=== PATIENT | male | born 1950 | race Caucasian/White ===

== ENCOUNTER 2024-05-23 10:53 | Day surgery (SDC) | payer MEDICARE ==
[~2024-05-23] VITALS: Ht 162.6 cm; Wt 69.3 kg
[~2024-05-23 10:53] MED LIST: ASPI81TA26 PO; LISI20TA33 PO; OMEG10002 PO; SIMV20TA22 PO; SYNT25TA PO
[2024-05-23] MEDS ORDERED: LR 1,000 ML IV SCH (11:45)
[2024-05-23] MEDS ORDERED: ROCURONIUM BROMIDE 50MG/5ML VIAL As Ordered ONE (11:53)
[2024-05-23] MEDS ORDERED: ONDANSETRON 4MG 2ML VIAL As Ordered ONE (11:53)
[2024-05-23] MEDS ORDERED: ACETAMINOPHEN 1000MG/100ML IV BAG As Ordered ONE (11:53)
[2024-05-23] MEDS ORDERED: LIDOCAINE 2% 100MG/5ML SDV (FOR ANES.) As Ordered ONE (11:53)
[2024-05-23] MEDS ORDERED: fentaNYL 100 MCG/2 ML INJECTION As Ordered ONE (11:53)
[2024-05-23] MEDS ORDERED: propofoL 200 MG/20 ML VIAL As Ordered ONE (11:53)
[2024-05-23] MEDS ORDERED: SUGAMMADEX SODIUM 500 MG/5 ML VIAL (BRIDION) As Ordered ONE (11:54)
[2024-05-23] MEDS ORDERED: LIDOCAINE 1% SDV 30ML VIAL As Ordered ONE (12:29)
[2024-05-23] MEDS ORDERED: PERCOCET 5MG/325MG TAB PO PRN (12:50)
[2024-05-23] MEDS ORDERED: ACETAMINOPHEN 325 MG TAB PO PRN (12:50)
[2024-05-23] MEDS: ceFAZolin SOD 2 GM in IV 1 EA IV ONE (13:10)
[2024-05-23] MEDS: HEPARIN SOD (PORCINE) 5000UNITS/ML 1ML VIAL/SYRINGE SQ ONE (13:15)
[2024-05-23] MEDS ORDERED: hydrALAZINE 20MG/ML 1ML VIAL As Ordered ONE (15:59)
[2024-05-23] MEDS: ceFAZolin 1GM VIAL As Ordered ONE (17:10)
[2024-05-23] MEDS ORDERED: HYDROmorphone HCL 2MG/ML 1ML VIAL As Ordered ONE (17:32)
[2024-05-23] MEDS ORDERED: KETOROLAC 60MG 2ML VIAL As Ordered ONE (19:23)
[2024-05-23] MEDS ORDERED: PHENYLephrine 500MCG 5ML (100MCG/ML) SYRINGE As Ordered ONE (19:28)
[2024-05-23] MEDS ORDERED: MORPHINE 2 MG/ML 1ML VIAL IV PRN (19:30)
[2024-05-23] MEDS ORDERED: fentaNYL 100 MCG/2 ML INJECTION IV PRN (19:30)
[2024-05-23] MEDS ORDERED: oxyCODONE 5MG TAB PO PRN (19:30)
[2024-05-23] MEDS ORDERED: ONDANSETRON 4MG 2ML VIAL IV PRN (19:30)
[2024-05-23 20:07] LABS: HEMOGLOBIN 12.6 g/dl (13.5-17.5); MEAN CORPUSCULAR HEMOGLOBIN 29.7 pg (27.0-33.0); MEAN CORPUSCULAR HGB CONC 33.2 g/dl (32.0-36.5); MEAN CORPUSCULAR VOLUME 89.6 fl (80.0-96.0); PLATELET COUNT, AUTOMATED 264 10^3/uL (150-450); RED BLOOD COUNT 4.24 10^6/uL (4.30-6.10); WHITE BLOOD COUNT 16.7 10^3/uL (4.0-10.0)
[2024-05-23 20:32] LABS: CALCIUM LEVEL 8.9 MG/DL (8.3-10.6); CREATININE FOR GFR 1.4 MG/DL (0.70-1.30); GLOMERULAR FILTRATION RATE 52.5 (>42); POTASSIUM SERUM 5.6 MMOL/L (3.5-5.1)
[2024-05-23] MEDS: ceFAZolin SOD 1 GM in DEXTROSE 5% (D5W) ADV/MINI-BAG 50 ML IV SCH (21:40)
[2024-05-23 21:45] VITALS: TEMP 97.7; O2SAT 97
[2024-05-23] MEDS: SIMVASTATIN 20 MG TAB PO SCH (22:25)
[2024-05-23] MEDS: DOCUSATE SODIUM 100MG CAPSULE PO SCH (22:25)
[2024-05-23] MEDS: HEPARIN SOD (PORCINE) 5000UNITS/ML 1ML VIAL/SYRINGE SC SCH (22:25)
[2024-05-23] MEDS: NS 500 ML IV SCH (22:26)
[2024-05-23 22:30] VITALS: BP 100/61; TEMP 98.1; O2SAT 98
[2024-05-23 23:00] VITALS: BP 111/73; TEMP 97.9; O2SAT 96
[2024-05-24] VITALS (9 sets, daily range): BP systolic 97–111; BP diastolic 58–63; TEMP 97.9; O2SAT 94–98
[2024-05-24 05:26] LABS: HEMATOCRIT 34.4 % (42.0-52.0); HEMOGLOBIN 11.4 g/dl (13.5-17.5); MEAN CORPUSCULAR HEMOGLOBIN 29.8 pg (27.0-33.0); MEAN CORPUSCULAR HGB CONC 33.1 g/dl (32.0-36.5); MEAN CORPUSCULAR VOLUME 89.8 fl (80.0-96.0); PLATELET COUNT, AUTOMATED 218 10^3/uL (150-450); RED BLOOD COUNT 3.83 10^6/uL (4.30-6.10); WHITE BLOOD COUNT 14.6 10^3/uL (4.0-10.0)
[2024-05-24] MEDS: LEVOTHYROXINE 25MCG TABLET (0.025MG) PO SCH (05:35)
[2024-05-24] MEDS: PERCOCET 5MG/325MG TAB PO PRN (05:43)
[2024-05-24 05:52] LABS: CALCIUM LEVEL 8.3 MG/DL (8.3-10.6); CREATININE FOR GFR 1.36 MG/DL (0.70-1.30); GLOMERULAR FILTRATION RATE 54.2 (>42); POTASSIUM SERUM 5.8 MMOL/L (3.5-5.1)
[2024-05-24] MEDS: FUROSEMIDE 20MG/2ML VIAL IV ONE (06:41)
[2024-05-24] MEDS ORDERED: CIPR-249 PO (09:35)
[2024-05-24] MEDS ORDERED: COLA100C5 PO (09:35)
[2024-05-24] MEDS ORDERED: PERCOCET PO (09:35)
[2024-05-24] MEDS: ONDANSETRON 4MG 2ML VIAL IV PRN (13:26)
[2024-05-24 13:38] LABS: CALCIUM LEVEL 8.7 MG/DL (8.3-10.6); CREATININE FOR GFR 1.33 MG/DL (0.70-1.30); GLOMERULAR FILTRATION RATE 55.7 (>42); POTASSIUM SERUM 4.9 MMOL/L (3.5-5.1)
== END 2024-05-24 16:26 | disposition home or self-care (01) ==
LOC: M SDC 10:53 → M MSPAV 20:57 → M SDC 05-24 16:26
PROVIDERS: ATTEND Urology
DX: C61 Malignant neoplasm of prostate (principal); K66.0 Peritoneal adhesions (postprocedural) (postinfection); I10 Essential (primary) hypertension; E78.5 Hyperlipidemia, unspecified; E03.9 Hypothyroidism, unspecified; Z79.82 Long term (current) use of aspirin; Z79.899 Other long term (current) drug therapy; J44.9 Chronic obstructive pulmonary disease, unspecified
CPT/HCPCS: 36415; 38571; 55866; 80048; 85027; 86850; 86900; 86901; 88305; 88309; 96365; 96366; 96372; 96375; J0131; J0360; J0665; J0690; J1100; J1171; J1885; J1940; J2371; J2405; J3010; S2900